=== PATIENT | female | born 1955 | race Caucasian/White ===

== ENCOUNTER → 2022-11-03 | Outpatient (CLI) | payer BC ==
[~2022-11-03] MED LIST: ALBU90OI61 INH; Antivert25 MG PO; Ibuprofen Ib200 MG PO; OLME20 PO; VALS80 PO
== END ==
LOC: LAB SHORT 15:00 → LAB 15:00
DX: D22.5 Melanocytic nevi of trunk (principal); B08.1 Molluscum contagiosum
CPT/HCPCS: 88305

== ENCOUNTER 2024-07-01 11:38 | Observation (INO) | payer MEDICARE ==
[~2024-07-01] VITALS: Ht 165.1 cm; Wt 91.0 kg
[2024-07-01 12:29] LABS: RDW Coefficient Variation 11.7 % (11.7-14.2)
[2024-07-01 12:37] LABS: Mean Corpuscular HGB 30.5 pg (26.0-34.0); Mean Corpuscular HGB Conc 37.2 g/dL (31.5-36.5); Mean Corpuscular Volume 82 fL (80-100); Mean Platelet Volume 11.4 fL (9.1-12.4); Platelet Count 117 K/mm3 (150-400); RDW Standard Deviation 35.1 fL (35.1-46.3); White Blood Cell Count 5.66 K/mm3 (4.00-11.30)
[2024-07-01 12:38] LABS: Hemoglobin 13.4 g/dL (11.5-16.0)
[2024-07-01 12:52] LABS: BASOPHILS PERCENT MAN 0 % (0-2); EOSINOPHILS PERCENT MAN 0 % (0-6); LYMPHOCYTES % ATYPICAL MANUAL 1 % (0-0); LYMPHOCYTES ABSOLUTE MAN 0.96 K/mm3 (0.84-5.20); LYMPHOCYTES PERCENT MAN 16 % (21-46); MONOCYTES ABSOLUTE MAN 0.22 K/mm3 (0.16-1.47); MONOCYTES PERCENT MAN 4 % (4-13); NEUTROPHILS ABSOLUTE MAN 4.47 K/mm3 (1.96-9.15); SEG NEUTROPHILS PERCENT MAN 79 % (41-73); TOTAL CELLS COUNTED 100
[2024-07-01 13:01] LABS: Albumin/Globulin Ratio 0.9 (0.8-1.8); Bilirubin, Total 0.7 mg/dL (0.1-1.0); Bun/Creatinine Ratio 21.2 (12.0-20.0); Calcium, Blood 8.1 mg/dL (8.5-10.1); Creatinine, Blood 0.71 mg/dL (0.40-1.00); Globulin, Blood 3.3 g/dL (2.2-4.0); Potassium, Blood 2.8 mmol/L (3.5-5.5); Total Protein, Blood 6.3 g/dL (6.4-8.2)
[2024-07-01 13:07] LABS: Influenza B, PCR NEGATIVE (NEGATIVE); Resp Syncytial Virus, PCR NEGATIVE (NEGATIVE); SARS-Cov-2 (COVID-19) PCR, MMC NEGATIVE (NEGATIVE)
[2024-07-01 13:09] LABS: Influenza A, PCR POSITIVE (NEGATIVE)
[2024-07-01] MEDS ORDERED: Ipratropium/Albuterol SulF 2.5-0.5MG/3 ML Amp INH ONE (13:10)
[2024-07-01] MEDS ORDERED: Albuterol 2.5 MG/3 ML VIAL INH SCH (13:10)
[2024-07-01] MEDS ORDERED: Amoxicillin 500 MG Cap PO ONE (13:10)
[2024-07-01] MEDS ORDERED: PredniSONE 20 MG Tab PO ONE (13:10)
[2024-07-01] MEDS ORDERED: Potassium Chl 20MEQ/Water100ML 100 ML IV SCH (13:45)
[2024-07-01] MEDS ORDERED: NS 1,000 ML IV SCH ×2 (13:45→14:55)
[2024-07-01] MEDS ORDERED: Benzonatate 100 MG Cap PO PRN (15:00)
[2024-07-01] MEDS ORDERED: Azithromycin 250 MG Tab PO SCH (15:00)
[2024-07-01] MEDS ORDERED: Acetaminophen 325 MG TABLET PO PRN (15:00)
[2024-07-01] MEDS ORDERED: Albuterol 2.5 MG/3 ML VIAL INH PRN (15:00)
[2024-07-01] MEDS ORDERED: Ipratropium/Albuterol SulF 2.5-0.5MG/3 ML Amp INH SCH (15:00)
[2024-07-01] MEDS ORDERED: FLU VACC TS2024-25(6MOS UP)/PF 45 MCG/0.5 ML SYRINGE IM SCH (15:00)
[2024-07-01] MEDS ORDERED: NS KCl 20mEq 1,000 ML IV SCH (15:05)
[2024-07-01] MEDS ORDERED: Ondansetron HCl 2 MG / ML 2ML Vial IV PRN (15:05)
[2024-07-01 15:57] LABS: Bun/Creatinine Ratio 20.6 (12.0-20.0); Calcium, Blood 7.8 mg/dL (8.5-10.1); Creatinine, Blood 0.68 mg/dL (0.40-1.00); Potassium, Blood 3.5 mmol/L (3.5-5.5)
[2024-07-01 16:46] VITALS: BP 164/74
[2024-07-01] MEDS ORDERED: LevoFLOXacin 750 MG Tab PO SCH (17:00)
[2024-07-01] MEDS ORDERED: CHLO25B PO (17:23)
[2024-07-01 18:07] LABS: Adenovirus Not Detected (NOT DETECT); Bordetella pertussis Not Detected (NOT DETECT); Chlamydophila pneumoniae Not Detected (NOT DETECT); Coronavirus 229E Not Detected (NOT DETECT); Coronavirus HKU1 Not Detected (NOT DETECT); Coronavirus NL63 Not Detected (NOT DETECT); Coronavirus OC43 Not Detected (NOT DETECT); Human Metapneumovirus Not Detected (NOT DETECT); Human Rhinovirus/Enterovirus Not Detected (NOT DETECT); Influenza A/2009-H1 Detected (NOT DETECT); Influenza A/H1 Not Detected (NOT DETECT); Influenza A/H3 Not Detected (NOT DETECT); Influenza B Not Detected (NOT DETECT); Mycoplasma pneumoniae Not Detected (NOT DETECT); Parainfluenza Virus 1 Not Detected (NOT DETECT); Parainfluenza Virus 2 Not Detected (NOT DETECT); Parainfluenza Virus 3 Not Detected (NOT DETECT); Parainfluenza Virus 4 Not Detected (NOT DETECT); Respiratory Syncytial Virus Not Detected (NOT DETECT); SARS-Cov-2 (COVID-19), BioFire Not Detected (NOT DETECT)
--- NOTE | 2024-07-01 19:08 | NUR ---
ADMISSION AND SHIFT SUMMARY PATIENT ALERT AND INTERACTIVE. PATIENT ABLE TO AMBULATE INDEPENDENTLY IN THE ROOM BUT WEAK. ADMISSION DONE. PATIENT ENCOURAGED TO CALL FOR ASSISTANCE BECAUSE OF IV AND WEAKNESS. PATIENT AND FAMILY EDUCATED ON ISOLATION
[2024-07-01 19:44] VITALS: BP 168/86
[2024-07-01] MEDS ORDERED: GuaiFENesin 600 MG TabCR PO SCH (21:00)
[2024-07-01] MEDS ORDERED: Oseltamivir Phosphate 75 MG Cap PO ONE (21:00)
[2024-07-02 00:04] VITALS: BP 149/68
[2024-07-02] MEDS ORDERED: diphenhydrAMINE HCl 12.5 MG/5 ML 5MLUDC (Alcohol/Dye Free) PO ONE (02:40)
[2024-07-02] MEDS ORDERED: DiphenhydrAMINE HCL 25 MG Cap PO ONE (03:00)
[2024-07-02 04:26] VITALS: BP 160/90
--- NOTE | 2024-07-02 05:16 | NUR ---
SHIFT SUMMARY PATIENT IS ALERT AND ORIENTED. PATIENT HAS HAD NO ACUTE EVENTS THIS SHIFT. VITAL SIGNS REVIEWED. PATIENT HAS HAD COMPLAINTS OF PAIN AND COUGHING SPELLS THIS SHIFT AND MEDICATED PER EMAR. PATIENT COMPLAINED OF TROUBLE SLEEPING AND MEDICATED PER EMAR. PATIENT HAS HAD NO COMPLAINTS OF NAUSEA OR VOMITTING THIS SHIFT. BED IN LOCKED AND LOWEST POSITION. CALL LIGHT IN PLACE.
[2024-07-02 05:33] LABS: BASOPHILS ABSOLUTE AUTO 0.01 K/mm3 (0.00-0.23); BASOPHILS PERCENT AUTO 0 % (0-2); EOSINOPHILS PERCENT AUTO 0 % (0-6); Mean Corpuscular HGB 30.8 pg (26.0-34.0); Mean Corpuscular HGB Conc 37.5 g/dL (31.5-36.5); Mean Corpuscular Volume 82 fL (80-100); Mean Platelet Volume 11.3 fL (9.1-12.4); Platelet Count 161 K/mm3 (150-400); RDW Coefficient Variation 11.9 % (11.7-14.2); RDW Standard Deviation 35.6 fL (35.1-46.3)
[2024-07-02 05:36] LABS: IMMATURE GRAN ABSOLUTE AUTO 0.03 K/mm3 (0.00-0.10); IMMATURE GRAN PERCENT AUTO 0 % (0-1); LYMPHOCYTES PERCENT AUTO 6 % (21-46); MONOCYTES ABSOLUTE AUTO 0.67 K/mm3 (0.16-1.47); MONOCYTES PERCENT AUTO 6 % (4-13); NEUTROPHILS ABSOLUTE AUTO 9.19 K/mm3 (1.96-9.15); NEUTROPHILS PERCENT AUTO 88 % (41-73)
[2024-07-02 05:56] LABS: Albumin, Blood 2.9 g/dL (3.4-5.0); Albumin/Globulin Ratio 0.9 (0.8-1.8); Bilirubin, Total 0.6 mg/dL (0.1-1.0); Calcium, Blood 8.2 mg/dL (8.5-10.1); Creatinine, Blood 0.71 mg/dL (0.40-1.00); Globulin, Blood 3.2 g/dL (2.2-4.0); Magnesium, Blood 1.5 mg/dL (1.6-2.4); Phosphorus, Blood 2.1 mg/dL (2.5-4.9); Potassium, Blood 3.5 mmol/L (3.5-5.5); Total Protein, Blood 6.1 g/dL (6.4-8.2)
[2024-07-02 07:57] VITALS: BP 162/68
[2024-07-02] MEDS ORDERED: Potassium Phosphate Dibasic 30 MM in Dextrose 5% 500 ML IV STA (08:31)
[2024-07-02] MEDS ORDERED: Magnesium Sulf 2 GM/Water 50ML 50 ML IV STA (08:31)
[2024-07-02] MEDS ORDERED: Enoxaparin 40 MG/0.4 ML SYR SC SCH (09:00)
[2024-07-02] MEDS ORDERED: Oseltamvir Phosphate 30 MG Cap PO SCH (09:00)
[2024-07-02 11:35] VITALS: BP 130/74
[2024-07-02] MEDS ORDERED: GUAI600T33 PO (13:42)
[2024-07-02 13:47] VITALS: BP 136/68
[2024-07-02 13:49] VITALS: BP 139/73; BP 147/78
[2024-07-02] MEDS ORDERED: LEVO750 PO (13:49)
[2024-07-02] MEDS ORDERED: Tamiflu30 MG PO (13:50)
[2024-07-02] MEDS ORDERED: OLME20 PO (13:51)
--- NOTE | 2024-07-02 18:23 | NUR ---
SHIFT SUMMARY PATIENT ALERT AND INTERACTIVE. PATIENT INDEPENDENT IN THE ROOM. PATIENT EAGER TO GO HOME. PATIENT CONTINUES TO HAVE NONPRODUCTIVE FREQUENT COUGH. DISCHARGE INSTRUCTIONS REVIEWED WITH PATIENT AND . EDUCATION PROVIDED RELATED TO RECOVERY, CONSERVATION OF ENERGY. FLUID INTAKE, AND MEDICATIONS. PATIENT VERBALIZED UNDERSTANDING. IV DC'D AFTER ELECTROLYTE REPLACEMENTS COMPLETE. PATIENT TAKEN OUT VIA WHEELCHAIR. BELONGINGS SENT HOME WITH PATIENT AND ROOM CHECK DONE BEFORE DEPARTURE.
== END 2024-07-02 16:20 | disposition home or self-care (01) ==
LOC: ER 11:38 → MEDS 11:39
PROVIDERS: Student in an Organized Health Care Education/Training Program; ADMIT Internal Medicine
DX: R55 Syncope and collapse (principal); E86.0 Dehydration; E87.1 Hypo-osmolality and hyponatremia; E87.6 Hypokalemia; E83.39 Other disorders of phosphorus metabolism; E83.42 Hypomagnesemia; J10.1 Influenza due to other identified influenza virus with other respiratory manifestations; I10 Essential (primary) hypertension; Z79.899 Other long term (current) drug therapy
CPT/HCPCS: 0202U; 0241U; 36415; 71045; 80048; 80053; 83735; 84100; 84145; 85025; 93005; 93010; 94640; 94644; 94664; 94760; 96365; 96366; 96367; 96372; 96376; 99285-25; A9270; G0378; J1650; J3475; J3480; J7030; J7060; J7512